=== PATIENT | female | born 1960 | race Hispanic/Latino ===

== ENCOUNTER → 2019-10-19 | Outpatient (CLI) | payer BC | LOC: MAMMO 12:36 | PROVIDERS: ATTEND Family Medicine | DX: Z12.31 Encounter for screening mammogram for malignant neoplasm of breast (principal) | CPT/HCPCS: 77067 ==

== ENCOUNTER → 2019-11-17 | Outpatient (CLI) | payer BC ==
--- NOTE | 2019-11-21 07:47 | Diagnostic Imaging Report ---
#[id number] - USBRELIMRT ULTRASOUND OF THE RIGHT BREAST : 11/17/2019 Comparison is made to exams dated: 10/19/2019 mammogram and 11/17/2019 mammogram - [facility]. Color flow and real-time ultrasound were performed on the right breast. Correia scale images of the real-time examination were reviewed. There is a benign oval cyst in the right breast at 12 o'clock anterior depth. This oval cyst is anechoic. IMPRESSION: BENIGN There is no sonographic evidence of malignancy. The oval cyst in the right breast is consistent with a simple cyst and is benign. A 1 year screening mammogram is recommended. EDILIA cullen/alex:11/20/2019 17:33:01 Head Filter Tank Tender Helper: MICKY SCHMITT [facility], [facility] letter sent: Compared to Prior B9 Ultrasound BI-RADS: 2 Benign
--- NOTE | 2019-11-21 07:47 | Diagnostic Imaging Report ---
#[id number] - MGDXRT #UNILATERAL RIGHT DIGITAL DIAGNOSTIC MAMMOGRAM WITH SPOT COMPRESSION: 11/17/2019 Comparison is made to exams dated: 10/19/2019 mammogram - [facility], 01/12/2014 mammogram, 01/30/2013 mammogram and 01/20/2012 mammogram - [facility]. The tissue of the right breast is heterogeneously dense. This may lower the sensitivity of mammography. There is an oval equal density mass with an obscured margin in the right breast at 12 o'clock anterior depth. No other significant masses or calcifications are seen in the breast. IMPRESSION: INCOMPLETE: NEEDS ADDITIONAL IMAGING EVALUATION The oval equal density mass in the right breast is indeterminate. An ultrasound will be performed during the same visit. EDILIA WU M.D. kw/:11/20/2019 17:31:47 Nuclear Technician: Brenda TOLBERT(R)(M), [facility] Mammogram BI-RADS: 0 Indeterminate
== END ==
LOC: MAMMO 08:57
PROVIDERS: ATTEND Obstetrics & Gynecology
DX: R92.1 Mammographic calcification found on diagnostic imaging of breast (principal)

== ENCOUNTER → 2021-05-08 | Outpatient (CLI) | payer BC | LOC: MAMMO 12:41 | PROVIDERS: ATTEND Obstetrics & Gynecology | DX: R92.2 Inconclusive mammogram (principal) | CPT/HCPCS: 77066 ==

== ENCOUNTER → 2022-07-29 | Outpatient (CLI) | payer BC | LOC: MAMMO 09:23 | PROVIDERS: ATTEND Obstetrics & Gynecology | DX: Z12.31 Encounter for screening mammogram for malignant neoplasm of breast (principal) | CPT/HCPCS: 77067 ==